=== PATIENT | male | born 1945 | race Caucasian/White ===

== ENCOUNTER 2022-03-07 08:04 | Day surgery (SDC) | payer MEDICARE ==
[2022-03-07] MEDS: Lactated Ringers 1,000 ML IV SCH (08:22)
[2022-03-07] MEDS ORDERED: Propofol 200 MG/20 ML SDV ONE (10:02)
[2022-03-07] MEDS ORDERED: Midazolam 1 MG/ML 2 ML SDV ONE (10:02)
[2022-03-07] MEDS ORDERED: fentaNYL 100 MCG/2 ML SDV ONE (10:02)
== END 2022-03-07 11:24 | disposition home or self-care (01) ==
LOC: VM.SDS 08:04
PROVIDERS: ATTEND Surgery
DX: K62.1 Rectal polyp (principal); K57.30 Diverticulosis of large intestine without perforation or abscess without bleeding; I10 Essential (primary) hypertension; F41.9 Anxiety disorder, unspecified; N40.0 Benign prostatic hyperplasia without lower urinary tract symptoms; F32.A Depression, unspecified; Z79.899 Other long term (current) drug therapy; Z87.891 Personal history of nicotine dependence; Z79.82 Long term (current) use of aspirin; Z98.890 Other specified postprocedural states
CPT/HCPCS: 00811; J2250; J2704; J3010; J7120